=== PATIENT | male | born 1980 | race Caucasian/White ===

== ENCOUNTER 2020-05-13 18:46 | Emergency (ER) | payer SELFPAY ==
[2020-05-13 19:00] VITALS: BP 131/88; PULSE 100
--- NOTE | 2020-05-13 19:13 | EDM.PDOC ---
ED HPI GENERAL MEDICAL PROBLEM - General Chief Complaint: Lower Extremity Injury/Pain Stated Complaint: LT FOOT/ANKLE INJURY Time Seen by Provider: 05/13/20 19:02 - History of Present Illness INITIAL COMMENTS - FREE TEXT/NARRATIVE: 41-year-old male presents the emergency room with left ankle and foot pain. Tuesday evening the patient was taking the trash out and when was walking over some uneven pavement taking out the trash and he stumbled tripped rolling his left ankle in. Most of his pain is on the top of his foot. Patient also bumped his right knee however he is ambulating on this without any difficulty. Patient denies any other injuries with this most unfortunate mishap. Patient denies any other problems at this time he does not have a fever cough. Left Foot Pain Score (Numeric/FACES): 10 - Related Data Allergies Allergy/AdvReac Type Severity Reaction Status Date / Time No Known Allergies Allergy Verified 05/13/20 19:00 Past Medical History Respiratory History: Reports: Sleep Apnea - Past Surgical History Respiratory Surgical History: Reports: None Social & Family History - Tobacco Use Smoking Status *Q: Never Smoker Second Hand Smoke Exposure: No - Caffeine Use Caffeine Use: Reports: Coffee - Recreational Drug Use Recreational Drug Use: No Review of Systems - Review of Systems Review Of Systems: See Below Constitutional: Reports: No Symptoms Respiratory: Reports: No Symptoms Cardiovascular: Reports: No Symptoms GI/Abdominal: Reports: No Symptoms Genitourinary: Reports: No Symptoms Musculoskeletal: Reports: Other (See history of present illness) Neurological: Reports: No Symptoms ED EXAM, GENERAL - Physical Exam Exam: See Below Exam Limited By: No Limitations General Appearance: Alert, No Apparent Distress Head: Atraumatic, Normocephalic Neck: Normal Inspection, Supple, Non-Tender, Full Range of Motion Respiratory/Chest: No Respiratory Distress, Lungs Clear, Normal Breath Sounds Cardiovascular: Regular Rate, Rhythm, No Edema, No Murmur Back Exam: Normal Inspection. No: CVA Tenderness (L), CVA Tenderness (R) Extremities: Other (Some ecchymosis developing over his left foot with some mild nonspecific swelling mostly lateral and along the lateral ankle. No obvious deformity. Patient has tenderness over the midfoot region neurovascular status in the digits is normal.) Neurological: Alert, Oriented, Normal Cognition Course - Vital Signs Last Recorded V/S: Last Vital Signs Temp 37.4 C 05/13/20 18:56 Pulse 100 05/13/20 18:56 Resp 22 H 05/13/20 18:56 BP 131/88 05/13/20 18:56 Pulse Ox 94 L 05/13/20 18:56 - Re-Assessments/Exams Free Text/Narrative Re-Assessment/Exam: 05/13/20 20:22 X-ray examination of his foot and ankle are negative for acute fractures dislocations scattered calcaneal spur noted and some mild arthritic changes noted but nothing acute. I wanted to put him in a walking boot however the patient refused this offered him crutches and he does not think he to use these either. At this point he will use ibuprofen and rest his foot is much as he can Departure - Departure Time of Disposition: 20:22 Disposition: Home, Self-Care 01 Clinical Impression: Contusion of left foot, Mild sprain of left ankle - Discharge Information Referrals: PCP,None [Primary Care Provider] - Forms: ED Department Discharge Additional Instructions: Return to the emergency room with any questions problems or worsening symptoms Follow-up in the hospital clinic as needed [phone] Use ibuprofen, follow directions on the bottle. Keep your foot and ankle elevated as much as you can ice it as tolerated. Sepsis Event Note (ED) - Evaluation Sepsis Screening Result: No Definite Risk - Focused Exam Vital Signs: Vital Signs Temp Pulse Resp BP Pulse Ox 05/13/20 18:56 37.4 C 100 22 H 131/88 94 L
--- NOTE | 2020-05-13 20:10 | CR ---
Left ankle: 4 views of left ankle were obtained. Comparison: No previous ankle study. Ankle mortise is symmetric. Small spur noted at the attachment of the Achilles tendon to the calcaneus. No acute fracture, dislocation or other bony abnormality is appreciated. Impression: 1. Small calcaneal spur. 2. Nothing acute is seen on left ankle study. Diagnostic code #2 This report was dictated in [facility]
--- NOTE | 2020-05-13 20:12 | CR ---
Left foot: 4 views left foot were obtained. Comparison: No previous foot study. Findings: Small spur is again noted at the attachment of the Achilles tendon and calcaneus. No acute fracture, dislocation or other bony abnormality is seen. Impression: 1. Nothing acute is appreciated on left foot exam. Diagnostic code #2 This report was dictated in [facility]T
== END 2020-05-13 21:03 | disposition home or self-care (01) ==
LOC: JD.ED 18:46
DX: S93.402A Sprain of unspecified ligament of left ankle, initial encounter (principal); S90.32XA Contusion of left foot, initial encounter; X50.1XXA Overexertion from prolonged static or awkward postures, initial encounter; Y93.01 Activity, walking, marching and hiking
CPT/HCPCS: 73610-26-LT; 73610-LT; 73630-26-LT; 73630-LT; 99283

== ENCOUNTER 2023-10-09 23:10 | Emergency (ER) | payer MEDICAID ==
[2023-10-09] MEDS ORDERED: Sodium Chloride 0.9% 10 ML Syringe FLUSH PRN (23:27)
[2023-10-09] MEDS ORDERED: Sodium Chloride 0.9% 1,000 ML IV SCH (23:30)
[2023-10-09 23:35] LABS: BASOPHILS ABSOLUTE AUTO 0.1 K/mm3 (0.0-0.2); BASOPHILS PERCENT AUTO 0.4 % (0.0-1.0); EOSINOPHILS ABSOLUTE AUTO 0.1 K/mm3 (0.0-0.4); EOSINOPHILS PERCENT AUTO 0.8 % (0.0-6.0); HEMATOCRIT 44.8 % (42.0-52.0); HEMOGLOBIN 15.8 gm/dl (14.0-18.0); IMMATURE GRAN ABSOLUTE AUTO 0.04 K/mm3 (0.00-0.05); IMMATURE GRAN PERCENT AUTO 0.3 % (0.0-0.4); LYMPHOCYTES ABSOLUTE AUTO 1.3 K/mm3 (1.0-4.8); LYMPHOCYTES PERCENT AUTO 10.8 % (24.0-44.0); MEAN CORPUSCULAR HEMOGLOBIN 31.7 pg (28.0-32.0); MEAN CORPUSCULAR HGB CONC 35.3 g/dl (32.0-36.0); MEAN CORPUSCULAR VOLUME 89.8 fl (83.0-99.0); MEAN PLATELET VOLUME 10.2 fl (9.4-12.4); MONOCYTES ABSOLUTE AUTO 0.9 K/mm3 (0.0-0.8); MONOCYTES PERCENT AUTO 7.3 % (0.0-8.0); NEUTROPHILS ABSOLUTE AUTO 9.8 K/mm3 (1.8-7.7); NEUTROPHILS PERCENT AUTO 80.4 % (41.0-71.0); PLATELET COUNT,PLT 252 K/mm3 (150-400); RED BLOOD CELL COUNT 4.99 M/mm3 (4.52-5.90); WHITE BLOOD CELL COUNT,WBC 12.16 K/mm3 (3.9-11.3)
[2023-10-09 23:46] LABS: ALBUMIN 4.2 g/dl (3.4-5.0); ANION GAP 21.3 (5-15); BILIRUBIN TOTAL 0.7 mg/dL (0.2-1.0); BUN/CREATININE RATIO 14.2 (14-18); CALCIUM 8.8 mg/dL (8.5-10.1); CREATININE 1.2 mg/dL (0.7-1.3); EST CRCL DRUG DOSING (CG) 67.62 mL/min; MAGNESIUM 1.9 mg/dL (1.8-2.4); POTASSIUM,K 3.3 mEq/L (3.5-5.1); PROTEIN TOTAL,TP 8.4 g/dl (6.4-8.2)
[2023-10-10 01:07] LABS: BARBITURATE SCREEN,URINE NEGATIVE (CUTOFF=200); BENZODIAZEPINES SCREEN,URINE NEGATIVE (CUTOFF=150); BUPRENORPHINE SCREEN,URINE NEGATIVE (CUTOFF=10); METHADONE SCREEN, URINE NEGATIVE (CUT0FF=200); METHAMPHETAMINES SCREEN, URINE PRESUMPTIVE POSITIVE (CUTOFF=500); OXYCODONE SCREEN,URINE NEGATIVE (CUT0FF=100); THC SCREEN,URINE 20 NG/ML NEGATIVE (CUTOFF=50)
[2023-10-10 01:10] LABS: AMPHETAMINES SCREEN, URINE PRESUMPTIVE POSITIVE (CUTOFF=500)
[2023-10-10 01:44] VITALS: BP 122/88; PULSE 90
== END 2023-10-10 01:46 | disposition home or self-care (01) ==
LOC: JD.ED 23:10
DX: T68.XXXA Hypothermia, initial encounter (principal); F15.10 Other stimulant abuse, uncomplicated
CPT/HCPCS: 36415; 70450; 73502; 80053; 80306; 80307; 83735; 85025; 96360; 99285; J3490; J7030